=== PATIENT | female | born 2000 | race Caucasian/White ===

== ENCOUNTER 2020-12-14 01:18 | Emergency (ER) | payer OTHER ==
[2020-12-14 02:14] VITALS: BMI 26.4
[2020-12-14 03:04] LABS: MCH 30.9 pg (25.7-33.7); MCHC 34.8 g/dl (32.0-36.0); MEAN PLT VOLUME 9.9 fl (7.5-11.1); WHITE BLOOD COUNT 8.8 K/mm3 (4.0-10.0)
[2020-12-14 03:06] LABS: BASO % 0.5 % (0-2.0); EOS % 0.9 % (0-4.5); HEMATOCRIT 40.6 % (32.4-45.2); HEMOGLOBIN 14.1 GM/dL (10.7-15.3); LYMPH % 24.6 % (8-40); MEAN CELL VOLUME 88.8 fl (80-96); MONO % 7.8 % (3.8-10.2); NEUT % 66.2 % (42.8-82.8); PLATELET COUNT 224 K/MM3 (134-434); RBC 4.57 M/mm3 (3.60-5.2); RDW 12.4 % (11.6-15.6)
[2020-12-14 03:19] LABS: CALCIUM 8.7 mg/dL (8.5-10.1)
[2020-12-14 03:20] LABS: BLOOD UREA NITROGEN 8.5 mg/dL (7-18)
[2020-12-14 03:21] LABS: INR 1.03 (0.83-1.09); PROTHROMBIN TIME (PATIENT) 12.7 SEC (9.7-13.0)
[2020-12-14 03:23] LABS: CREATININE 0.4 mg/dL (0.55-1.3)
[2020-12-14 03:24] LABS: ACTIVATED PTT 33.2 SECONDS (25.2-36.5)
[2020-12-14] MEDS ORDERED: ACETAMINOPHEN 325 MG TABLET (FP) PO ONE (04:08)
[2020-12-14] MEDS ORDERED: ACETAMINOPHEN 325 MG TABLET (FP) ONE (04:29)
[2020-12-14 09:00] LABS: N-TERMINAL BNP 22.8 pg/ml (5-125)
[2020-12-14] MEDS ORDERED: CLINDAMYCIN HCL 300 MG CAPSULE PO ONE (09:48)
[2020-12-14] MEDS ORDERED: CLINDAMYCIN HCL 150 MG CAPSULE (FP) ONE (10:03)
[2020-12-14 10:07] VITALS: BP 111/71; PULSE 101; TEMP 98
== END 2020-12-14 10:11 | disposition home or self-care (01) ==
LOC: JER 01:18
DX: L03.116 Cellulitis of left lower limb (principal); E11.65 Type 2 diabetes mellitus with hyperglycemia
CPT/HCPCS: 36415; 80048; 82962; 83036; 83880; 84703; 85025; 85379; 85610; 85730; 93971-TC; 99284-25

== ENCOUNTER 2021-01-19 10:28 | Emergency (ER) | payer OTHER ==
[2021-01-19 10:34] VITALS: TEMP 98; BMI 26.2
[2021-01-19] MEDS ORDERED: ACETAMINOPHEN 1000 MG/100 ML VIAL (NON FORMULARY) IVPB ONE (11:36)
[2021-01-19] MEDS ORDERED: SODIUM CHLORIDE 1,000 ML IV STA (11:41)
[2021-01-19] MEDS ORDERED: ACETAMINOPHEN INJECTION 100 ML IVPB ONE (11:46)
[2021-01-19 12:46] LABS: BASO % 0.6 % (0-2.0); EOS % 1.2 % (0-4.5); HEMATOCRIT 46.6 % (32.4-45.2); HEMOGLOBIN 15.8 GM/dL (10.7-15.3); LYMPH % 29.1 % (8-40); MCH 29.5 pg (25.7-33.7); MCHC 33.8 g/dl (32.0-36.0); MEAN CELL VOLUME 87.4 fl (80-96); MONO % 5.1 % (3.8-10.2); PLATELET COUNT 265 K/MM3 (134-434); RBC 5.33 M/mm3 (3.60-5.2); RDW 12.4 % (11.6-15.6); WHITE BLOOD COUNT 8.4 K/mm3 (4.0-10.0)
[2021-01-19 12:51] LABS: EPI CELLS 10 /uL (0-25.1); HCG,QUALITATIVE URINE Negative; HYALINE CASTS 0 /uL (0-3.1); PH,URINE 6.5 (5.0-8.0); URINE APPEARANCE CLOUDY; URINE BACTERIA 75 /uL (0-1359); URINE BILIRUBIN NEGATIVE (NEGATIVE); URINE COLOR RED; URINE GLUCOSE (UA) TRACE (NEGATIVE); URINE KETONE 1+ (NEGATIVE); URINE LEUK ESTERASE NEGATIVE (NEGATIVE); URINE NITRITE NEGATIVE (NEGATIVE); URINE PROTEIN NEGATIVE (NEGATIVE); URINE RBC 5714 /uL (0-23.9); URINE WBC 22 /uL (0-25.8)
[2021-01-19 12:55] LABS: INR 0.96 (0.83-1.09); PROTHROMBIN TIME (PATIENT) 11.6 SEC (9.7-13.0)
[2021-01-19 13:10] LABS: ALBUMIN 3.9 g/dl (3.4-5.0); CALCIUM 9.6 mg/dL (8.5-10.1)
[2021-01-19 13:14] LABS: CREATININE 0.4 mg/dL (0.55-1.3)
[2021-01-19 13:15] LABS: BILIRUBIN,TOTAL 0.4 mg/dL (0.2-1)
[2021-01-19 15:17] VITALS: BP 113/79; PULSE 87
== END 2021-01-19 15:44 | disposition home or self-care (01) ==
LOC: JER 10:28
PROC: 3E0333Z Introduction of Anti-inflammatory into Peripheral Vein, Percutaneous Approach (ICD-10-PCS; principal; 2021-01-19)
PROC: 3E0337Z Introduction of Electrolytic and Water Balance Substance into Peripheral Vein, Percutaneous Approach (ICD-10-PCS; 2021-01-19)
DX: R73.9 Hyperglycemia, unspecified (principal); M25.562 Pain in left knee
CPT/HCPCS: 36415; 73562-TC-LT-FY; 80053; 81003; 84703; 85025; 85610; 87040; 87077; 87086; 99284-25; J0131

== ENCOUNTER 2021-08-14 16:24 | Emergency (ER) | payer OTHER ==
[2021-08-14 16:52] VITALS: BP 122/88; PULSE 94; TEMP 98; BMI 27.6
== END 2021-08-14 18:06 | disposition home or self-care (01) ==
LOC: JERFT 16:24
DX: S63.653A Sprain of metacarpophalangeal joint of left middle finger, initial encounter (principal)
CPT/HCPCS: 73130-TC-LT-FY; 99284-25

== ENCOUNTER 2021-08-31 23:15 | Emergency (ER) | payer SELFPAY ==
[2021-08-31 23:53] VITALS: BP 132/88; PULSE 91; TEMP 98; BMI 27.3
[2021-09-01] MEDS ORDERED: KETOROLAC TROMETHAMINE 30 MG/1 ML VIAL IM ONE (03:33)
[2021-09-01] MEDS ORDERED: KETOROLAC TROMETHAMINE 30 MG/1 ML VIAL ONE (03:41)
== END 2021-09-02 04:00 | disposition home or self-care (01) ==
LOC: JER 23:15
PROC: 3E0233Z Introduction of Anti-inflammatory into Muscle, Percutaneous Approach (ICD-10-PCS; principal; 2021-08-31)
DX: M65.842 Other synovitis and tenosynovitis, left hand (principal)
CPT/HCPCS: 73110-TC-LT-FY; 73130-TC-LT-FY; 99283-25

== ENCOUNTER 2023-01-27 21:42 | Emergency (ER) | payer OTHER ==
[2023-01-27 21:54] VITALS: BP 128/86; PULSE 110; RESP 18; TEMP 98.1; BMI 28.9
[2023-01-27] MEDS ORDERED: FAMOTIDINE 20 MG/50 ML IVPB 20 MG/50 ML MG IVPB ONE ×2 (23:04→23:13)
[2023-01-27] MEDS ORDERED: ONDANSETRON 4 MG/2 ML VIAL IVPUSH ONE (23:04)
[2023-01-27] MEDS ORDERED: ONDANSETRON 4 MG/2 ML VIAL ONE (23:12)
[2023-01-27] MEDS ORDERED: LACTATED RINGERS SOLUTION 1,000 ML/1,000 ML INFUS.BAG IV SCH (23:15)
[2023-01-27 23:36] LABS: BASO % 0.4 % (0-2.0); EOS % 0.7 % (0-4.5); HEMATOCRIT 51.4 % (32.4-45.2); HEMOGLOBIN 17.4 GM/dL (10.7-15.3); LYMPH % 19.6 % (8-40); MCH 29.5 pg (25.7-33.7); MCHC 33.9 g/dl (32.0-36.0); MEAN CELL VOLUME 87.1 fl (80-96); MEAN PLT VOLUME 9.4 fl (7.5-11.1); NEUT % 73.3 % (42.8-82.8); PLATELET COUNT 238 10^3/uL (134-434); RDW 13.1 % (11.6-15.6); WHITE BLOOD COUNT 10.7 K/mm3 (4.0-10.0)
[2023-01-27 23:39] LABS: EPI CELLS 20 /uL (0-25.1); HYALINE CASTS 4 /uL (0-3.1); PH,URINE 5.5 (5.0-8.0); URINE APPEARANCE CLOUDY; URINE BACTERIA >9,000 /uL (0-1359); URINE BILIRUBIN NEGATIVE (NEGATIVE); URINE COLOR DK YELLOW; URINE GLUCOSE (UA) 3+ (NEGATIVE); URINE KETONE 4+ (NEGATIVE); URINE LEUK ESTERASE 1+ (NEGATIVE); URINE NITRITE NEGATIVE (NEGATIVE); URINE PROTEIN 3+ (NEGATIVE); URINE RBC 21 /uL (0-23.9); URINE WBC 732 /uL (0-25.8)
[2023-01-27 23:45] LABS: HCG,QUALITATIVE URINE Negative
[2023-01-28 00:03] LABS: POTASSIUM 4.4 mmol/L (3.5-5.1)
[2023-01-28 00:05] LABS: ALBUMIN 4.1 g/dl (3.4-5.0); CALCIUM 9.9 mg/dL (8.5-10.1)
[2023-01-28 00:06] LABS: BLOOD UREA NITROGEN 9.4 mg/dL (7-18)
[2023-01-28 00:08] LABS: CREATININE 0.5 mg/dL (0.55-1.3)
[2023-01-28 00:10] LABS: BILIRUBIN,TOTAL 0.6 mg/dL (0.2-1); TOT PROT 8.1 g/dl (6.4-8.2)
[2023-01-28 00:18] LABS: VENOUS BASE EXCESS -0.5 mmol/L (-2-2); VENOUS O2 SATURATION 48.5 % (70-80); VENOUS PH 7.325 (7.310-7.410)
[2023-01-28] MEDS ORDERED: SODIUM CHLORIDE 0.9% 500 ML INFUS.BAG IV ONE (01:28)
== END 2023-01-28 03:53 | disposition home or self-care (01) ==
LOC: JER 21:42
PROC: 3E033GC Introduction of Other Therapeutic Substance into Peripheral Vein, Percutaneous Approach (ICD-10-PCS; principal; 2023-01-27)
PROC: 3E033GC Introduction of Other Therapeutic Substance into Peripheral Vein, Percutaneous Approach (ICD-10-PCS; 2023-01-27)
DX: R11.2 Nausea with vomiting, unspecified (principal); R42 Dizziness and giddiness; R68.83 Chills (without fever); N39.0 Urinary tract infection, site not specified
CPT/HCPCS: 36415; 80053; 81003; 82010; 82803; 82962; 83690; 84703; 85025; 99284-25

== ENCOUNTER 2023-04-26 13:33 | Emergency (ER) | payer OTHER ==
[2023-04-26 14:20] VITALS: BP 120/88; PULSE 87; RESP 18; TEMP 97.9; BMI 27.6
[2023-04-26] MEDS ORDERED: ACETAMINOPHEN 500 MG TABLET (FP) PO ONE (15:01)
[2023-04-26] MEDS ORDERED: ACETAMINOPHEN 325 MG TABLET (FP) ONE (15:08)
[2023-04-26 15:30] LABS: HEMATOCRIT 46.6 % (32.4-45.2); HEMOGLOBIN 15.6 GM/dL (10.7-15.3); MCH 29.6 pg (25.7-33.7); MCHC 33.5 g/dl (32.0-36.0); MEAN CELL VOLUME 88.2 fl (80-96); MEAN PLT VOLUME 9.6 fl (7.5-11.1); MONO % 5.4 % (3.8-10.2); NEUT % 58.6 % (42.8-82.8); PLATELET COUNT 210 10^3/uL (134-434); RBC 5.28 M/mm3 (3.60-5.2); RDW 11.7 % (11.6-15.6); WHITE BLOOD COUNT 8.8 K/mm3 (4.0-10.0)
[2023-04-26 15:53] LABS: POTASSIUM 3.8 mmol/L (3.5-5.1)
[2023-04-26] MEDS ORDERED: PIPERACILLIN/TAZOB 3.375 GM 3.375 GM in DEXTROSE 5%-WATER - 50 ML IVPB ONE (15:53)
[2023-04-26] MEDS ORDERED: VANCOMYCIN 1,000 MG in DEXTROSE 5%-WATER - 250 ML IVPB ONE (15:53)
[2023-04-26 15:57] LABS: CALCIUM 9.1 mg/dL (8.5-10.1)
[2023-04-26 15:58] LABS: ALBUMIN 3.9 g/dl (3.4-5.0); BLOOD UREA NITROGEN 8.2 mg/dL (7-18)
[2023-04-26] MEDS ORDERED: VANCOMYCIN 1 GRAM (PRE-DOCKED) 1,000 MG/250 ML BAG IVPB ONE (15:59)
[2023-04-26] MEDS ORDERED: PIPERACILLIN/TAZOB 3.375 GM 3.375 GM/50 ML BAG IVPB ONE (15:59)
[2023-04-26 16:01] LABS: CREATININE 0.3 mg/dL (0.55-1.3)
[2023-04-26 16:02] LABS: TOT PROT 7.6 g/dl (6.4-8.2)
[2023-04-26 16:03] LABS: BILIRUBIN,TOTAL 0.6 mg/dL (0.2-1)
[2023-04-26 16:38] LABS: ERYTHROCYTE SEDIMENTATION RATE 12 mm/hr (0-20)
[2023-04-26] MEDS ORDERED: SODIUM CHLORIDE 0.9% 500 ML INFUS.BAG IV ONE (17:58)
[2023-04-26] MEDS ORDERED: KETOROLAC TROMETHAMINE 15 MG/ML VIAL IVPUSH ONE (19:50)
[2023-04-26] MEDS ORDERED: KETOROLAC TROMETHAMINE 15 MG/ML VIAL ONE (19:59)
== END 2023-04-26 23:16 | disposition left against medical advice (07) ==
LOC: JER 13:33
PROC: 3E03329 Introduction of Other Anti-infective into Peripheral Vein, Percutaneous Approach (ICD-10-PCS; principal; 2023-04-26)
PROC: 3E03329 Introduction of Other Anti-infective into Peripheral Vein, Percutaneous Approach (ICD-10-PCS; 2023-04-26)
PROC: 3E03329 Introduction of Other Anti-infective into Peripheral Vein, Percutaneous Approach (ICD-10-PCS; 2023-04-26)
PROC: 3E0333Z Introduction of Anti-inflammatory into Peripheral Vein, Percutaneous Approach (ICD-10-PCS; 2023-04-26)
PROC: 3E033GC Introduction of Other Therapeutic Substance into Peripheral Vein, Percutaneous Approach (ICD-10-PCS; 2023-04-26)
DX: R22.31 Localized swelling, mass and lump, right upper limb (principal); M79.644 Pain in right finger(s)
CPT/HCPCS: 36415; 73130-TC-RT-FY; 80053; 82962; 84703; 85025; 85651; 99285-25